=== PATIENT | male | born 1980 | race Caucasian/White ===

== ENCOUNTER 2016-08-19 23:09 | Emergency (ER) | payer OTHER ==
--- NOTE | 2016-08-19 23:41 | ED CLINICAL REPORT ---
Clinical Report - Physicians/Mid Levels [facility] [address] [place] [address] 08/19/2016 23:10 Patient: ALLEN SNOW Time Seen: 2330. Arrived- By private vehicle. HISTORY OF PRESENT ILLNESS Chief Complaint: SKIN RASH. This started today and is still present. It has been located on the right lower extremity. (possible insect bite now with erythema/ pain/ swelling to right le. No trauma. No fevers.+ mrsa h/o, no recent abx, tdap < 5 years). REVIEW OF SYSTEMS No fever, cough, nausea or diarrhea. All systems otherwise negative, except as recorded above. PAST HISTORY Problems: Cholelithiasis. Headache. Contusion. Seizure Disorder. Head Injury. Impetigo. Tetanus Status. Cellulitis. Immunizations. Additional Surgeries: no known surgeries. Medications: None. Allergies: Amoxicillin. Penicillins. ADDITIONAL NOTES The nursing notes have been reviewed. PHYSICAL EXAM Vital Signs: 08/19/2016 23:16 BP: 145/80. HR: 112. RR: 20. O2 saturation: 98%. Temp: 97.5 F. Pain level now: 6/10. Appearance: Alert. ENT: Ears normal. Nose normal. CVS: Tachycardia. Heart sounds normal. Respiratory: No respiratory distress. No respiratory distress. Breath sounds normal. Skin: Normal skin color. Cellulitis. There is warmth, tenderness and swelling. (no fluctulance, no abrasion, no drainage.). Extremities: Right leg: erythema, tenderness and mild swelling located in the anterior aspect of mid leg. Neurovascular intact distally. No ecchymosis or foreign body. Neuro: Oriented X 3. PROGRESS AND PROCEDURES Course of Care: Patient with signs of acute cellulitis, no signs of point fluctuance or indication for incision and drainage. No trauma. Early signs us in 24 hours, thus osteomyelitis left suspicious of this time. Patient will be treated with Bactrim, history of MRSA. NOn septic. No lymphagetic streaking. Patient is stable. Symptoms better. Patient/family counseled. Disposition: Discharged. Condition: good. CLINICAL IMPRESSION Cellulitis of the right lower leg. Substance abuse problems: abuse of opiates. Substance dependence problems: dependence on opiates. INSTRUCTIONS (elevate leg). Prescription Medications: Bactrim DS 800 mg / 160 mg: take 1 tablet orally every 12 hours for 10 days. No refill. Substitution is permissible. Follow-up: Follow up with your doctor in three as needed and for wound check. Understanding of the discharge instructions verbalized by patient. (Electronically signed by Kayleigh Collier P.A.-C 08/19/2016 23:48)
--- NOTE | 2016-08-19 23:41 | ED ORDER SUMMARY ---
..... Patient: ALLEN SNOW OrderSheet [facility] VisitID: [id number] [address] [place] [address] 36y, M Registration Date/Time: 08/19/2016 ORDER SHEET Weight: 72.5 kg (stated) Allergies: Amoxicillin, Penicillins GENERAL ORDERS: MEDICATION ORDERS: Bactrim DS PO (Tablet 800-160 mg) 2 tabs (NOW) (23:32 08/19/2016 Julia Lui) (Ack 23:36 DDavis R.N.) (23:38 TLewis R.N.) IV FLUIDS: ORDER SHEET NOTES: [Electronically signed by Kayleigh Collier P.A.-C (23:48 08/19/2016)] [Electronically signed by Sujata Burton (02:40 08/20/2016)] [Electronically locked/signed by Sujata Burton (02:40 08/20/2016)]
--- NOTE | 2016-08-19 23:41 | ED ORDER SUMMARY ---
..... Patient: ALLEN SNOW OrderSheet [facility] VisitID: [id number] [address] [place] [address] 36y, M Registration Date/Time: 08/19/2016 ORDER SHEET Weight: 72.5 kg (stated) Allergies: Amoxicillin, Penicillins GENERAL ORDERS: MEDICATION ORDERS: Bactrim DS PO (Tablet 800-160 mg) 2 tabs (NOW) (23:32 08/19/2016 Julia Lui) (Ack 23:36 DDavis R.N.) (23:38 TLewis R.N.) IV FLUIDS: ORDER SHEET NOTES: [Electronically signed by Kayleigh Collier P.A.-C (23:48 08/19/2016)] [Electronically signed by Sujata Burton (02:40 08/20/2016)] [Electronically locked/signed by Sujata Burton (02:40 08/20/2016)]
--- NOTE | 2016-08-19 23:41 | ED NURSING NOTES ---
Clinical Report - Nurses [facility] [address] [place] [address] 08/19/2016 23:10 Patient: ALLEN SNOW TRIAGE Triage time 23:17 Aug 19 2016. Acuity: LEVEL 4. Chief Complaint: SKIN RASH. SEPSIS SCREEN: Sepsis Screen: negative. Infection suspected/documented. Heart rate greater than 90. ROSA COMA SCORE: [place] Coma Scale: 15- eyes open spontaneously (4); best verbal response- oriented x 4 (5); best motor response- obeys commands (6). --23:22 Sujata Burton 23:16 08/19/16. BP: 145/80. HR: 112. RR: 20. O2 saturation: 98% on room air. Temp: 97.5 F (oral). Pain level now: 11/17. --23:22 Sujata Burton. Weight: 72.5 kg stated. Height/Length: 72 inches Per Patient. BMI: 21.7. --23:21 Sujata Burton. Medications None. --23:18 Sujata Burton. Medication/allergy information source: the patient. --23:22 Sujata Burton. Allergies Amoxicillin. --23:18 Sujata Burton Penicillins. --23:18 Sujata Burton. History Arrived by private vehicle. Historian: patient. Unaccompanied. Primary physician (none). Reported as located on the right leg. This started yesterday. It is described as burning and painful. ( Patient reports he was bit by something yesterday and he pulled out a "stinger" from his leg. He states it began swelling and is painful and hot. Patient reports that he has had the sweats as well.). PAST MEDICAL HX: Immunizations: up-to-date. SOCIAL HX: Light tobacco smoker (cigarette)- less than 1/2 a pack per day. History of drug use: heroin, methamphetamines. Recently used drugs just prior to arrival. No alcohol use. No infectious disease exposure. ABUSE ASSESSMENT: No report of abuse. FALL RISK ASSESSMENT: Fall risk assessment completed. No fall risk identified. NUTRITIONAL RISK ASSESSMENT: The nutritional risk assessment revealed no deficiencies. FUNCTIONAL ASSESSMENT: Functional assessment: no impairments noted. LEARNING NEEDS ASSESSMENT: The learning needs assessment revealed no barriers. SKIN INTEGRITY ASSESSMENT: Skin integrity risk assessment completed. No skin integrity risk identified. --23:22 Sujata Burton. PROBLEMS: Cholelithiasis. Headache. Contusion. Seizure Disorder. Head Injury. Impetigo. Tetanus Status. Cellulitis. Immunizations. --23:18 Sujata Burton. ADDITIONAL SURGERIES: no known surgeries. Interventions ID band on patient. To treatment room. --23:22 Sujata Burton. PHYSICAL ASSESSMENT 23:22 08/19/16. Ambulatory to room. GENERAL / NEURO / PSYCH: Alert. The patient does not appear to be in acute distress. Oriented X 4. RESPIRATORY: Respirations not labored. CVS: Cardiac rhythm: sinus tachycardia. SKIN: Skin is warm. Skin lesion on the right leg. ( Extensive scarring on legs and arms). --23:22 Sujata Burton. NURSING PROGRESS NOTES Pulse oximeter and NIBP monitor placed on patient; monitor alarms on. Warming measures: blanket applied. Reassurance given to the patient. Two patient identifiers checked. Call light placed in reach. Side rails up x 1. Bed placed in lowest position. Brakes of bed on. Patient ready for evaluation- chart flagged and ED physician notified. --23:23 Sujata Burton 23:38 08/19/2016 Bactrim DS (Sulfamethoxazole-TMP DS) PO 2 tab given. Allergies verified and confirmed 5 rights. --23:38 Fernando Layton R.N. 23:39 08/19/16. BP: 145/80. HR: 108. RR: 15. O2 saturation: 99%. Pain level now 5/10. --23:39 Fernando Layton R.N. DISPOSITION / DISCHARGE 23:45 08/20/16. Condition at departure: stable. The goals identified in the patient's plan of care were met. No learning barriers present. Discharge instructions provided and reviewed with the patient. Reviewed medication(s) side effects, precautions, dosing and course information. Prescription(s) given to the patient. Reviewed wound care and skin care instructions. Patient verbalized understanding. Written instructions provided in Tristanian. ( Increase fluids while on antibiotic medications. Keep wound and surrounding skin clean and dry. Follow up with your PCP in one week.). The patient was discharged by the physician. He was discharged home and accompanied by accounting representative. He left the Emergency Department ambulatory and via private vehicle. Outside Dealer Sales Representative driving. FALL RISK ASSESSMENT: Fall risk assessment completed. No fall risk identified. --01: Sujata Burton 23:45 08/19/16. BP: 139/95. HR: 116. RR: 20. O2 saturation: 98% on room air. Temp: 98 F (oral). Pain level now: 01/17. --01:26 Sujata Burton. Locked/Released at 08/20/2016 2:40 by Sujata Burton,
--- NOTE | 2016-08-19 23:41 | ED CLINICAL REPORT ---
Clinical Report - Physicians/Mid Levels [facility] [address] [place] [address] 08/19/2016 23:10 Patient: ALLEN SNOW Time Seen: 2330. Arrived- By private vehicle. HISTORY OF PRESENT ILLNESS Chief Complaint: SKIN RASH. This started today and is still present. It has been located on the right lower extremity. (possible insect bite now with erythema/ pain/ swelling to right le. No trauma. No fevers.+ mrsa h/o, no recent abx, tdap < 5 years). REVIEW OF SYSTEMS No fever, cough, nausea or diarrhea. All systems otherwise negative, except as recorded above. PAST HISTORY Problems: Cholelithiasis. Headache. Contusion. Seizure Disorder. Head Injury. Impetigo. Tetanus Status. Cellulitis. Immunizations. Additional Surgeries: no known surgeries. Medications: None. Allergies: Amoxicillin. Penicillins. ADDITIONAL NOTES The nursing notes have been reviewed. PHYSICAL EXAM Vital Signs: 08/19/2016 23:16 BP: 145/80. HR: 112. RR: 20. O2 saturation: 98%. Temp: 97.5 F. Pain level now: 6/10. Appearance: Alert. ENT: Ears normal. Nose normal. CVS: Tachycardia. Heart sounds normal. Respiratory: No respiratory distress. No respiratory distress. Breath sounds normal. Skin: Normal skin color. Cellulitis. There is warmth, tenderness and swelling. (no fluctulance, no abrasion, no drainage.). Extremities: Right leg: erythema, tenderness and mild swelling located in the anterior aspect of mid leg. Neurovascular intact distally. No ecchymosis or foreign body. Neuro: Oriented X 3. PROGRESS AND PROCEDURES Course of Care: Patient with signs of acute cellulitis, no signs of point fluctuance or indication for incision and drainage. No trauma. Early signs us in 24 hours, thus osteomyelitis left suspicious of this time. Patient will be treated with Bactrim, history of MRSA. NOn septic. No lymphagetic streaking. Patient is stable. Symptoms better. Patient/family counseled. Disposition: Discharged. Condition: good. CLINICAL IMPRESSION Cellulitis of the right lower leg. Substance abuse problems: abuse of opiates. Substance dependence problems: dependence on opiates. INSTRUCTIONS (elevate leg). Prescription Medications: Bactrim DS 800 mg / 160 mg: take 1 tablet orally every 12 hours for 10 days. No refill. Substitution is permissible. Follow-up: Follow up with your doctor in three as needed and for wound check. Understanding of the discharge instructions verbalized by patient. (Electronically signed by Kayleigh Collier P.A.-C 08/19/2016 23:48)
--- NOTE | 2016-08-19 23:41 | ED NURSING NOTES ---
Clinical Report - Nurses [facility] [address] [place] [address] 08/19/2016 23:10 Patient: ALLEN SNOW TRIAGE Triage time 23:17 Aug 19 2016. Acuity: LEVEL 4. Chief Complaint: SKIN RASH. SEPSIS SCREEN: Sepsis Screen: negative. Infection suspected/documented. Heart rate greater than 90. ROSA COMA SCORE: [place] Coma Scale: 15- eyes open spontaneously (4); best verbal response- oriented x 4 (5); best motor response- obeys commands (6). --23:22 Sujata Burton 23:16 08/19/16. BP: 145/80. HR: 112. RR: 20. O2 saturation: 98% on room air. Temp: 97.5 F (oral). Pain level now: 11/17. --23:22 Sujata Burton. Weight: 72.5 kg stated. Height/Length: 72 inches Per Patient. BMI: 21.7. --23:21 Sujata Burton. Medications None. --23:18 Sujata Burton. Medication/allergy information source: the patient. --23:22 Sujata Burton. Allergies Amoxicillin. --23:18 Sujata Burton Penicillins. --23:18 Sujata Burton. History Arrived by private vehicle. Historian: patient. Unaccompanied. Primary physician (none). Reported as located on the right leg. This started yesterday. It is described as burning and painful. ( Patient reports he was bit by something yesterday and he pulled out a "stinger" from his leg. He states it began swelling and is painful and hot. Patient reports that he has had the sweats as well.). PAST MEDICAL HX: Immunizations: up-to-date. SOCIAL HX: Light tobacco smoker (cigarette)- less than 1/2 a pack per day. History of drug use: heroin, methamphetamines. Recently used drugs just prior to arrival. No alcohol use. No infectious disease exposure. ABUSE ASSESSMENT: No report of abuse. FALL RISK ASSESSMENT: Fall risk assessment completed. No fall risk identified. NUTRITIONAL RISK ASSESSMENT: The nutritional risk assessment revealed no deficiencies. FUNCTIONAL ASSESSMENT: Functional assessment: no impairments noted. LEARNING NEEDS ASSESSMENT: The learning needs assessment revealed no barriers. SKIN INTEGRITY ASSESSMENT: Skin integrity risk assessment completed. No skin integrity risk identified. --23:22 Sujata Burton. PROBLEMS: Cholelithiasis. Headache. Contusion. Seizure Disorder. Head Injury. Impetigo. Tetanus Status. Cellulitis. Immunizations. --23:18 Sujata Burton. ADDITIONAL SURGERIES: no known surgeries. Interventions ID band on patient. To treatment room. --23:22 Sujata Burton. PHYSICAL ASSESSMENT 23:22 08/19/16. Ambulatory to room. GENERAL / NEURO / PSYCH: Alert. The patient does not appear to be in acute distress. Oriented X 4. RESPIRATORY: Respirations not labored. CVS: Cardiac rhythm: sinus tachycardia. SKIN: Skin is warm. Skin lesion on the right leg. ( Extensive scarring on legs and arms). --23:22 Sujata Burton. NURSING PROGRESS NOTES Pulse oximeter and NIBP monitor placed on patient; monitor alarms on. Warming measures: blanket applied. Reassurance given to the patient. Two patient identifiers checked. Call light placed in reach. Side rails up x 1. Bed placed in lowest position. Brakes of bed on. Patient ready for evaluation- chart flagged and ED physician notified. --23:23 Sujata Burton 23:38 08/19/2016 Bactrim DS (Sulfamethoxazole-TMP DS) PO 2 tab given. Allergies verified and confirmed 5 rights. --23:38 Fernando Layton R.N. 23:39 08/19/16. BP: 145/80. HR: 108. RR: 15. O2 saturation: 99%. Pain level now 5/10. --23:39 Fernando Layton R.N. DISPOSITION / DISCHARGE 23:45 08/20/16. Condition at departure: stable. The goals identified in the patient's plan of care were met. No learning barriers present. Discharge instructions provided and reviewed with the patient. Reviewed medication(s) side effects, precautions, dosing and course information. Prescription(s) given to the patient. Reviewed wound care and skin care instructions. Patient verbalized understanding. Written instructions provided in Bruneian. ( Increase fluids while on antibiotic medications. Keep wound and surrounding skin clean and dry. Follow up with your PCP in one week.). The patient was discharged by the physician. He was discharged home and accompanied by bi solutions architect. He left the Emergency Department ambulatory and via private vehicle. Photo Editor driving. FALL RISK ASSESSMENT: Fall risk assessment completed. No fall risk identified. --01: Sujata Burton 23:45 08/19/16. BP: 139/95. HR: 116. RR: 20. O2 saturation: 98% on room air. Temp: 98 F (oral). Pain level now: 01/17. --01:26 Sujata Burton. Locked/Released at 08/20/2016 2:40 by Sujata Burton,
--- NOTE | 2016-08-20 02:41 | ED DISCHARGE INSTRUCTIONS ---
Patient: ALLEN SNOW General Instructions [facility] VisitID: [id number] [place] [address] 36y, M Registration Date/Time: 08/19/2016 Cellulitis of the right lower leg. Substance abuse problems: abuse of opiates. Substance dependence problems: dependence on opiates. INSTRUCTIONS (elevate leg). Prescription Medications: Bactrim DS 800 mg / 160 mg: take 1 tablet orally every 12 hours for 10 days. No refill. Substitution is permissible. Follow-up: Follow up with your doctor in three as needed and for wound check. Understanding of the discharge instructions verbalized by patient. ADDITIONAL INFORMATION Cellulitis You have an infection of the skin known as cellulitis. This usually starts with a scrape, cut, insect bite, blister or other opening in the skin which becomes infected. This is a serious condition. It must be watched closely to be sure the infection is not spreading. With antibiotic treatment, the size of the red area will gradually shrink in size until the skin returns to normal. This will take 7-10 days. The red area should never increase in size once the antibiotic medicine has been started. Occasionally, an infection will be resistant to one antibiotic and another one will have to be used. Home Care: 1) Limit the use of the affected part, since excess movement can cause the infection to spread. 2) If the infection is on your leg, walk as little as possible during the first few days of the treatment. Keep your leg elevated while sitting. This will reduce swelling. 3) Take all of the antibiotic medicine exactly as directed until it is gone. Be careful not to miss any doses, especially during the first seven days. Follow Up with your doctor or this facility as directed. Check the infected area daily for the warning signs listed below. Get Prompt Medical Attention if any of the following occur: -- Spreading area of redness -- Increasing swelling or pain -- Appearance of pus or drainage -- Fever over 100.4 F (38.0 C) oral, or over 101.4 F (38.6 C) rectal, after two days on antibiotics Sulfamethoxazole, Trimethoprim Oral tablet What is this medicine? SULFAMETHOXAZOLE; TRIMETHOPRIM or SMX-TMP (suhl fuh meth OK hari zohl; trye METH oh prim) is a combination of a sulfonamide antibiotic and a second antibiotic, trimethoprim. It is used to treat or prevent certain kinds of bacterial infections. It will not work for colds, flu, or other viral infections. How should I use this medicine? Take this medicine by mouth with a full glass of water. Follow the directions on the prescription label. Take your medicine at regular intervals. Do not take it more often than directed. Do not skip doses or stop your medicine early. Talk to your box estimator regarding the use of this medicine in children. Special care may be needed. This medicine has been used in children as young as 2 months of age. What side effects may I notice from receiving this medicine? Side effects that you should report to your doctor or health behavioral health care manager as soon as possible: allergic reactions like skin rash or hives, swelling of the face, lips, or tongue breathing problems fever or chills, sore throat irregular heartbeat, chest pain joint or muscle pain pain or difficulty passing urine red pinpoint spots on skin redness, blistering, peeling or loosening of the skin, including inside the mouth unusual bleeding or bruising unusually weak or tired yellowing of the eyes or skin Side effects that usually do not require medical attention (report to your doctor or health behavioral health care manager if they continue or are bothersome): diarrhea dizziness headache loss of appetite nausea, vomiting nervousness What may interact with this medicine? Do not take this medicine with any of the following medications: aminobenzoate potassium dofetilide metronidazole This medicine may also interact with the following medications: TOBY inhibitors like benazepril, enalapril, lisinopril, and ramipril cyclosporine digoxin diuretics indomethacin medicines for diabetes methenamine methotrexate phenytoin potassium supplements pyrimethamine sulfinpyrazone tricyclic antidepressants warfarin What if I miss a dose? If you miss a dose, take it as soon as you can. If it is almost time for your next dose, take only that dose. Do not take double or extra doses. Where should I keep my medicine? Keep out of the reach of children. Store at room temperature between 20 to 25 degrees C (68 to 77 degrees F). Protect from light. Throw away any unused medicine after the expiration date. What should I tell my health care provider before I take this medicine? They need to know if you have any of these conditions: anemia asthma being treated with anticonvulsants if you frequently drink alcohol containing drinks kidney disease liver disease low level of folic acid or [id number] dehydrogenase poor nutrition or malabsorption porphyria severe allergies thyroid disorder an unusual or allergic reaction to sulfamethoxazole, trimethoprim, sulfa drugs, other medicines, foods, dyes, or preservatives or trying to get breast-feeding What should I watch for while using this medicine? Tell your doctor or health behavioral health care manager if your symptoms do not improve. Drink several glasses of water a day to reduce the risk of kidney problems. Do not treat diarrhea with over the counter products. Contact your doctor if you have diarrhea that lasts more than 2 days or if it is severe and watery. This medicine can make you more sensitive to the sun. Keep out of the sun. If you cannot avoid being in the sun, wear protective clothing and use a sunscreen. Do not use sun lamps or tanning beds/booths. You have been given the following additional information: Cellulitis Sulfamethoxazole, Trimethoprim Oral tablet (Electronically signed by Kayleigh Collier P.A.-C 08/19/2016 23:48)
--- NOTE | 2016-08-20 02:41 | ED MED RECONCILIATION SUMMARY ---
Patient: ALLEN SNOW Medication Reconciliation Report [facility] VisitID: [id number] [address] [place] [address] 36y, M Registration Date/Time: 08/19/2016 Weight: 72.5 kg Height/Length: 72 in. BMI: 21.7 ALLERGIES: Amoxicillin, Penicillins The patient's Home Medications are listed below: NONE. The source(s) of the original Home Medication information: patient The following Medications were given to the patient in the Emergency Department: Bactrim DS [PO] PO 2 tab, administered: 08/19/2016 11:38:00 PM The following Medications were prescribed to the patient: Bactrim DS 800 mg / 160 mg: take 1 tablet orally every 12 hours for 10 days. No refill. Substitution is permissible. -- Kayleigh Collier PAshleyAIsaiC
--- NOTE | 2016-08-20 02:41 | ED MED RECONCILIATION SUMMARY ---
Patient: ALLEN SNOW Medication Reconciliation Report [facility] VisitID: [id number] [address] [place] [address] 36y, M Registration Date/Time: 08/19/2016 Weight: 72.5 kg Height/Length: 72 in. BMI: 21.7 ALLERGIES: Amoxicillin, Penicillins The patient's Home Medications are listed below: NONE. The source(s) of the original Home Medication information: patient The following Medications were given to the patient in the Emergency Department: Bactrim DS [PO] PO 2 tab, administered: 08/19/2016 11:38:00 PM The following Medications were prescribed to the patient: Bactrim DS 800 mg / 160 mg: take 1 tablet orally every 12 hours for 10 days. No refill. Substitution is permissible. -- Kayleigh Collier PAshleyAIsaiC
--- NOTE | 2016-08-20 02:41 | ED MAR SUMMARY ---
..... Medication Administration Record [facility] [address] [place] [address] Patient: ALLEN SNOW Visit ID: [id number] 36y, M Weight: 72.5 kg Height/Length: 72 in BMI: 21.7 ALLERGIES: Penicillins, Amoxicillin Given 23:38 08/19/2016 Fernando Layton R.N. Medication Administered: BACTRIM DS [PO] (SULFAMETHOXAZOLE-TMP DS), Dose: 2 tab PO. Medication Ordered: Bactrim DS PO (Tablet 800-160 mg) 2 tabs (NOW).
--- NOTE | 2016-08-20 02:41 | ED DISCHARGE INSTRUCTIONS ---
Patient: ALLEN SNOW General Instructions [facility] VisitID: [id number] [place] [address] 36y, M Registration Date/Time: 08/19/2016 Cellulitis of the right lower leg. Substance abuse problems: abuse of opiates. Substance dependence problems: dependence on opiates. INSTRUCTIONS (elevate leg). Prescription Medications: Bactrim DS 800 mg / 160 mg: take 1 tablet orally every 12 hours for 10 days. No refill. Substitution is permissible. Follow-up: Follow up with your doctor in three as needed and for wound check. Understanding of the discharge instructions verbalized by patient. ADDITIONAL INFORMATION Cellulitis You have an infection of the skin known as cellulitis. This usually starts with a scrape, cut, insect bite, blister or other opening in the skin which becomes infected. This is a serious condition. It must be watched closely to be sure the infection is not spreading. With antibiotic treatment, the size of the red area will gradually shrink in size until the skin returns to normal. This will take 7-10 days. The red area should never increase in size once the antibiotic medicine has been started. Occasionally, an infection will be resistant to one antibiotic and another one will have to be used. Home Care: 1) Limit the use of the affected part, since excess movement can cause the infection to spread. 2) If the infection is on your leg, walk as little as possible during the first few days of the treatment. Keep your leg elevated while sitting. This will reduce swelling. 3) Take all of the antibiotic medicine exactly as directed until it is gone. Be careful not to miss any doses, especially during the first seven days. Follow Up with your doctor or this facility as directed. Check the infected area daily for the warning signs listed below. Get Prompt Medical Attention if any of the following occur: -- Spreading area of redness -- Increasing swelling or pain -- Appearance of pus or drainage -- Fever over 100.4 F (38.0 C) oral, or over 101.4 F (38.6 C) rectal, after two days on antibiotics Sulfamethoxazole, Trimethoprim Oral tablet What is this medicine? SULFAMETHOXAZOLE; TRIMETHOPRIM or SMX-TMP (suhl fuh meth OK hari zohl; trye METH oh prim) is a combination of a sulfonamide antibiotic and a second antibiotic, trimethoprim. It is used to treat or prevent certain kinds of bacterial infections. It will not work for colds, flu, or other viral infections. How should I use this medicine? Take this medicine by mouth with a full glass of water. Follow the directions on the prescription label. Take your medicine at regular intervals. Do not take it more often than directed. Do not skip doses or stop your medicine early. Talk to your purse seiner regarding the use of this medicine in children. Special care may be needed. This medicine has been used in children as young as 2 months of age. What side effects may I notice from receiving this medicine? Side effects that you should report to your doctor or health director of managed care as soon as possible: allergic reactions like skin rash or hives, swelling of the face, lips, or tongue breathing problems fever or chills, sore throat irregular heartbeat, chest pain joint or muscle pain pain or difficulty passing urine red pinpoint spots on skin redness, blistering, peeling or loosening of the skin, including inside the mouth unusual bleeding or bruising unusually weak or tired yellowing of the eyes or skin Side effects that usually do not require medical attention (report to your doctor or health director of managed care if they continue or are bothersome): diarrhea dizziness headache loss of appetite nausea, vomiting nervousness What may interact with this medicine? Do not take this medicine with any of the following medications: aminobenzoate potassium dofetilide metronidazole This medicine may also interact with the following medications: TOBY inhibitors like benazepril, enalapril, lisinopril, and ramipril cyclosporine digoxin diuretics indomethacin medicines for diabetes methenamine methotrexate phenytoin potassium supplements pyrimethamine sulfinpyrazone tricyclic antidepressants warfarin What if I miss a dose? If you miss a dose, take it as soon as you can. If it is almost time for your next dose, take only that dose. Do not take double or extra doses. Where should I keep my medicine? Keep out of the reach of children. Store at room temperature between 20 to 25 degrees C (68 to 77 degrees F). Protect from light. Throw away any unused medicine after the expiration date. What should I tell my health care provider before I take this medicine? They need to know if you have any of these conditions: anemia asthma being treated with anticonvulsants if you frequently drink alcohol containing drinks kidney disease liver disease low level of folic acid or lyneoxv-[id number]-pasfrgqxm dehydrogenase poor nutrition or malabsorption porphyria severe allergies thyroid disorder an unusual or allergic reaction to sulfamethoxazole, trimethoprim, sulfa drugs, other medicines, foods, dyes, or preservatives or trying to get breast-feeding What should I watch for while using this medicine? Tell your doctor or health director of managed care if your symptoms do not improve. Drink several glasses of water a day to reduce the risk of kidney problems. Do not treat diarrhea with over the counter products. Contact your doctor if you have diarrhea that lasts more than 2 days or if it is severe and watery. This medicine can make you more sensitive to the sun. Keep out of the sun. If you cannot avoid being in the sun, wear protective clothing and use a sunscreen. Do not use sun lamps or tanning beds/booths. You have been given the following additional information: Cellulitis Sulfamethoxazole, Trimethoprim Oral tablet (Electronically signed by Kayleigh Collier P.A.-C 08/19/2016 23:48)
--- NOTE | 2016-08-20 02:41 | ED MAR SUMMARY ---
..... Medication Administration Record [facility] [address] [place] [address] Patient: ALLEN SNOW Visit ID: [id number] 36y, M Weight: 72.5 kg Height/Length: 72 in BMI: 21.7 ALLERGIES: Penicillins, Amoxicillin Given 23:38 08/19/2016 Fernando Layton R.N. Medication Administered: BACTRIM DS [PO] (SULFAMETHOXAZOLE-TMP DS), Dose: 2 tab PO. Medication Ordered: Bactrim DS PO (Tablet 800-160 mg) 2 tabs (NOW).
== END 2016-08-19 23:45 | disposition home or self-care (01) ==
LOC: ED SRH 23:09
DX: L03.115 Cellulitis of right lower limb (principal); F11.20 Opioid dependence, uncomplicated; G40.909 Epilepsy, unspecified, not intractable, without status epilepticus; F17.210 Nicotine dependence, cigarettes, uncomplicated; Z88.1 Allergy status to other antibiotic agents; Z88.0 Allergy status to penicillin